=== PATIENT | male | born 1985 | race African-American/Black ===

== ENCOUNTER 2017-08-14 10:27 | Emergency (ER) | payer SELFPAY ==
[2017-08-14] MEDS: IBUPROFEN 800 MG TABLET. PO (10:49)
== END 2017-08-14 13:02 | disposition home or self-care (01) ==
LOC: ER 13:02
DX: S52.601A Unspecified fracture of lower end of right ulna, initial encounter for closed fracture (principal); W22.8XXA Striking against or struck by other objects, initial encounter; Y93.89 Activity, other specified; Y92.89 Other specified places as the place of occurrence of the external cause; Y99.8 Other external cause status
CPT/HCPCS: 29125; 73090; 73110; 99284-25